=== PATIENT | female | born 1965 | race Caucasian/White ===

== ENCOUNTER 2023-12-20 12:33 | Emergency (ER) | payer MEDICARE, SELFPAY ==
[2023-12-20 12:36] VITALS: BP 107/68
[2023-12-20 13:08] VITALS: BP 118/67
[2023-12-20 13:13] VITALS: BMI 35.2
--- NOTE | 2023-12-20 13:14 | ED.GENMED ---
History of Present Illness
General
Chief Complaint: Fainting/Passed Out
Source: patient
Exam Limitations: none
Time Seen by Provider: 12/20/23 13:01
Travel History
Have you had any contact with someone who has COVID-19?: No
Do you have any symptoms of coronavirus? Fever > 100 degrees, chills, cough, shortness of breath, sore throat, loss of taste or smell, muscle aches, or headache?: No
History of Present Illness
History of Present Illness:
Patient started with crampy abdominal pain vomiting and diarrhea yesterday. Multiple episodes of diarrhea. No blood or mucus. Crampy abdominal pain. Had a syncopal episode last evening and this morning. Both with prodromal symptoms. No
significant trauma. No preceding chest pain shortness of breath palpitations heart racing. No recent antibiotics or travel history. 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 All
Past History
Past History
ED Past Medical History: Asthma, Cancer (uterine cancer), HTN, Hypercholesterolemia, IDDM, Seizures, Other (Neuropathy, dizziness, muscle weakness, bundle branch block, chronic urinary tract infections' anemia, urinary retention, lactic acidosis
from 'mitochondrial disease' (MELAS), Diabetic ulcers, Cellulitis, MS) and Other (Arthritis of the knee's, Cellulitis of the face, MRSA)
ED Past Surgical History: Appendectomy, Cholecystectomy, , Gynecological (Uterine CA with Hysterectomy) and Orthopedic (knee infection with arthroscopy)
Social History
Tobacco: Former smoker
Alcohol: None
Drug: None
Personal:
Living: alone
Employment: Employed
Family History
Family History: Other (Reviewed and non-contributory except for? MELAS in children)
Review of Systems
Review of Systems
All Other Systems: Not applicable
Constitutional: Denies fever
Respiratory: Denies cough
Cardiac: Denies chest pain or palpitations
Phy Exam
Physical Exam
Physical Exam:
GENERAL: Alert and oriented in no apparent distress. No scalp trauma. Neck nontender number at Tuesday to get the CT back
EYE: Orbits normal.
NECK: Supple, no significant adenopathy.
ENT: Pharynx without erythema
CARDIAC: Regular rate and rhythm without any obvious murmurs.
LUNGS: Clear breath sounds,normal
ABDOMEN: Soft, without focal tenderness or distention
NEUROLOGICAL: Alert and oriented , grossly non-focal
SKIN: Warm and dry, no rash or lesion, no discoloration, skin intact.
MUSCULOSKELETAL: No edema,no deformity.Good color
PSYCH: Normal and appropriate interaction.
Course
Orders/Labs/Results
Orders:
Orders
12/20/23 12:40
EKG [Electrocardiogram (*1)] Urgent
Reason for Study: Syncope
EKG- Treatment ONCE
12/20/23 13:16
0.9% Sodium Chloride 1000 ml [Nss] 1,000 ml IV BOLUS
12/20/23 13:20
CT Abd/pel W Iv And Oral Contr Urgent
Comment:
Reason For Exam: Abdominal pain/diarrhea/recurrent syncope
Cardiac Monitoring- Treatment ONCE
IV Insert/Care/Rem.- Treatment PRN
0.9% Sodium Chloride 1000 ml [Nss] 1,000 ml IV BOLUS
Iohexol [Omnipaque] See Protocol PO NOW STA
Pulse Ox/cont/shift [RESP] Stat
Quantity: 1
12/20/23 13:24
Complete Blood Count/With Diff Urgent
Comprehensive Metabolic Panel Urgent
Lipase Urgent
Troponin I Urgent
12/20/23 13:50
Potassium Chloride 10% Elixir [KCl Elixir] 40 meq PO NOW STA
12/20/23 14:33
Ondansetron Injectable [Zofran] 4 mg .ROUTE .STK-MED ONE
12/20/23 14:36
Ondansetron Injectable [Zofran] 4 mg IV NOW STA
12/20/23 16:31
STOOL [C difficile Antigen & Toxins] Urgent
TRINIDAD Source: Feces/Stool
Specimen Description:
Date Specimen was Collected: 12/20/23
Time Specimen was Collected: 16:30
Stool Culture Urgent
TRINIDAD Source: Feces/Stool
Specimen Description:
Date Specimen was Collected: 12/20/23
Time Specimen was Collected: 16:30
Abnormal Lab Results
12/20/23
13:24
MPV 10.8 H fL
(7.4-10.4)
Absolute Neuts (auto) 7.4 H 10^3/uL
(1.4-6.5)
Absolute Monos (auto) 0.7 H 10^3/uL
(0.1-0.6)
Lymphocytes % 17.5 L %
(20.5-51.1)
Potassium 3.2 L mmol/L
(3.5-5.1)
BUN 27 H mg/dl
(7-17)
Creatinine 1.1 H mg/dL
(0.6-1.0)
Glucose 155 H mg/dl
(70-99)
12/20/23 13:24
12/20/23 13:24
Vital Signs
Initial and Last Documented VS:
Initial Vital Signs
Temp Pulse Resp BP Pulse Ox
98.4 F 87 16 107/68 98
12/20/23 12:36 12/20/23 12:36 12/20/23 12:36 12/20/23 12:36 12/20/23 12:36
Last Documented Vital Signs
Temp Pulse Resp BP Pulse Ox
98.4 F 85 14 146/89 98
12/20/23 12:36 12/20/23 18:30 12/20/23 15:30 12/20/23 18:30 12/20/23 18:30
MDM/Problems Addressed
Differential Diagnosis Includes:
Patient's syncope is likely vasovagal/dehydration. Prodromal symptoms. Not describing anything that would make me suspicious for arrhythmias. Abdomen is nontender but with 2 episodes of syncope the gastric sleeve the pain last evening feel CT is
warranted.
*Radiology
Radiology exam reviewed: radiology read reviewed (CT consistent with colitis or enteritis)
*Pulse Oximetry
Patient hypoxic: no
*EKG
Interpreted by ED Provider?: Yes
Comparison EKG: changes noted
Rate: normal
Rhythm: sinus
[place]: left axis deviation
QRS Pattern: poor R-wave progression
Ischemia: other (No ischemia. Slight lengthening of QT but still within normal limits)
*Critical Care Note
Total Time (30-74mins, 75-104mins- exclusive of procedures): Not Applicable
Data Reviewed
Review of Other/Old Records Reveals: Labs and Testing
Update Note
Update Note:
Patient feeling better. Medically stable. Syncope be very likely vasovagal/dehydration. No arrhythmias here. Patient did not want to wait for her instructions. Is aware of her mild hypokalemia. Instructed to return with increased pain fever
recurrent passing out or any other concerning symptoms
ED Attending Note
-
Portions of this chart may have been created with voice recognition software.� Occasional wrong word or��sound alike� substitutions may have occurred due to the inherent limitations of voice recognition software.
Discharge Plan
Departure
Patient Disposition: Home (Routine Discharge)
Date of Disposition: 12/20/23
Time of Disposition: 19:53
Patient with high blood pressure during this ER visit?: Yes
Discharge Problem:
Enteritis/colitis, Syncope x 2
Prescriptions:
No Action
baclofen 10 MG tablet
10 mg PO TID
albuterol sulfate 1 PUFF HFA aerosol inhaler
1 puff inhalation R Q4HPRN PRN (Reason: SOB)
levocarnitine [Carnitor] 330 MG tablet
4 tab PO TID
gabapentin 100 MG capsule
100 mg PO TID
insulin lispro [Humalog U-100 Insulin] 100 UNIT/ML solution
0 unit SC .SLIDING SCALE AC
insulin glargine [Lantus Solostar U-100 Insulin] 300 UNITS/3 ML insulin pen
60 units SC HS
losartan 25 MG tablet
25 mg PO DAILY
Referrals:
Bibi Auguste DO [Family Provider] -
Interventions
Interventions:
*Risk Screen - Suicide Last Done: 12/20/23 12:36
*General Assessment Last Done: 12/20/23 12:36
*Neglect/Abuse Screening Last Done: 12/20/23 12:36
ED- Fall Risk Assessment Last Done: 12/20/23 13:45
*ED COVID-19 Vaccine History Last Done: 12/20/23 13:14
*Nursing Disposition Last Done: 12/20/23 19:56
ED- Cardiac Assessment Last Done: 12/20/23 13:14
ED- Neurological Assessment Last Done: 12/20/23 13:14
Discharge Date and Time
Discharge Date/Time: 12/20/23 19:57
[2023-12-20] MEDS: NSS 1000 IV (13:16)
[2023-12-20] MEDS: OMNIPAQUE 50 ML PO (13:28)
[2023-12-20 13:32] LABS: % Basophils 0.2 % (0-2); % Eosinophils 0.1 % (0-6); % Immature Granulocytes 0.4 % (0-0.5); % Lymphocytes 17.5 % (20.5-51.1); % Neutrophils 74.8 % (42.2-75.2); Absolute Lymphocytes 1.7 10^3/uL (1.2-3.4); Absolute Monocytes 0.7 10^3/uL (0.1-0.6); Absolute Neutrophils 7.4 10^3/uL (1.4-6.5); Hematocrit 39.4 % (37.0-47.0); Hemoglobin 13.4 g/dL (12.0-16.0); Mean Corpuscular Hgb 30.1 pg (27.0-31.0); Mean Corpuscular Volume 88.5 fL (81.0-99.0); Mean Platelet Volume 10.8 fL (7.4-10.4); Nucleated Red Blood Cells % 0 %; Platelet Count 256 10^3/uL (130-400); Red Blood Cell Count 4.45 10^6/uL (4.20-5.40); Red Cell Dist. Width 12.9 % (11.5-14.5); White Blood Cell Count 9.8 10^3/uL (4.8-10.8)
[2023-12-20 13:45] LABS: ALT (SGPT) 22 U/L (0-35); AST (SGOT) 27 U/L (14-36); Alkaline Phosphatase 67 U/L (38-126); Blood Urea Nitrogen 27 mg/dl (7-17); Calcium 8.9 mg/dl (8.4-10.2); Carbon Dioxide 23 mmol/L (22-30); Chloride 102 mmol/L (98-107); Estimated Creatinine Clearance 70 ml/min; Glucose 155 mg/dl (70-99); Potassium 3.2 mmol/L (3.5-5.1); Sodium 137 mmol/L (135-145); Total Bilirubin 0.8 mg/dl (0.2-1.3); Total Protein 6.7 g/dl (6.3-8.2); eGFR 57.88
[2023-12-20 13:52] LABS: Lipase 63 U/L (23-300)
[2023-12-20 13:56] LABS: Troponin I < 0.012 ng/ml
[2023-12-20 14:00] VITALS: BP 107/63
[2023-12-20] MEDS: KCL ELIXIR 40 MEQ PO (14:06)
[2023-12-20] MEDS: ZOFRAN 4 MG IV (14:37)
[2023-12-20 15:00] VITALS: BP 118/63
[2023-12-20 18:30] VITALS: BP 146/89
== END 2023-12-20 19:57 | disposition home or self-care (01) ==
LOC: EMR 12:33
PROVIDERS: EMERGENCY PHYSICIAN Emergency Medicine; FAMILY PHYSICIAN Family Medicine
DX: K52.9 Noninfective gastroenteritis and colitis, unspecified (principal); R55 Syncope and collapse; J45.909 Unspecified asthma, uncomplicated; I10 Essential (primary) hypertension; E78.00 Pure hypercholesterolemia, unspecified; E11.9 Type 2 diabetes mellitus without complications; Z85.42 Personal history of malignant neoplasm of other parts of uterus; Z87.891 Personal history of nicotine dependence; Z90.49 Acquired absence of other specified parts of digestive tract; Z90.710 Acquired absence of both cervix and uterus
CPT/HCPCS: 99284; 96374; 96361; 74177; 80053; 83690; 84484; 85025; 87045; 87046; 87077; 87324; 87427; 87449; 93005; Q9967

== ENCOUNTER → 2024-01-25 16:13 | Outpatient (REF) | payer MEDICARE, SELFPAY | LOC: HWWDC 16:13 | PROVIDERS: ATTENDING PHYSICIAN Family Medicine | DX: Z12.31 Encounter for screening mammogram for malignant neoplasm of breast (principal) | CPT/HCPCS: 77063; 77067 ==

== ENCOUNTER → 2024-03-12 16:40 | Outpatient (REF) | payer MEDICARE, SELFPAY | LOC: HWRAD 16:40 | PROVIDERS: ATTENDING PHYSICIAN Physician Assistant Medical | DX: J06.9 Acute upper respiratory infection, unspecified (principal) | CPT/HCPCS: 71046 ==

== ENCOUNTER → 2024-10-16 09:43 | Outpatient (REF) | payer MEDICARE, SELFPAY | LOC: HWRAD 09:43 | PROVIDERS: ATTENDING PHYSICIAN Psychiatry & Neurology Neurology; PRIMARYCARE PHYSICIAN Family Medicine; REFERRING PHYSICIAN Physician Assistant | DX: R79.89 Other specified abnormal findings of blood chemistry (principal); E71.318 Other disorders of fatty-acid oxidation; E04.1 Nontoxic single thyroid nodule | CPT/HCPCS: 76536; 76700 ==

== ENCOUNTER → 2024-10-30 10:06 | Outpatient (REF) | payer MEDICARE, SELFPAY | LOC: RAD 10:06 | PROVIDERS: ATTENDING PHYSICIAN Obstetrics & Gynecology; FAMILY PHYSICIAN Family Medicine | DX: N20.0 Calculus of kidney (principal); N39.0 Urinary tract infection, site not specified; N39.3 Stress incontinence (female) (male); R39.14 Feeling of incomplete bladder emptying | CPT/HCPCS: 74178; Q9967 ==

== ENCOUNTER → 2025-01-19 15:21 | Outpatient (REF) | payer MEDICARE, SELFPAY | LOC: RAD 15:21 | PROVIDERS: ATTENDING PHYSICIAN Emergency Medicine; FAMILY PHYSICIAN Family Medicine | DX: J45.50 Severe persistent asthma, uncomplicated (principal) | CPT/HCPCS: 71046 ==

== ENCOUNTER 2025-02-24 18:48 | Inpatient (IN) | payer MEDICARE, SELFPAY ==
[2025-02-24] VITALS (12 sets, daily range): BP systolic 105–138; BP diastolic 60–94; BMI 35.6; BMI 34.6
--- NOTE | 2025-02-24 14:23 | ED.GENMED ---
History of Present Illness
General
Chief Complaint: Rectal Bleeding
Source: patient
Exam Limitations: none
Time Seen by Provider: 02/24/25 14:09
Nursing documentation reviewed up to this point in time: agreed with
History of Present Illness
History of Present Illness:
59-year-old female with history of gastric sleeve 4 years ago, Cholecystectomy, appendectomy, hysterectomy, HTN, NIDDM on Mounjaro, mitochondrial disease, hypothyroidism, diabetic retinopathy presents with rectal bleeding. She states for the past
week she has noted red blood movements. She does have a history of hemorrhoids but they have not been bothering her. She is also had constant lower aching abdominal pains. Today her rectal bleeding included a large clot which prompted her to come
to the ER. She states she feels 'a little dizzy and a little nauseous.'
Past History
Past History
ED Past Medical History: Asthma, Cancer (uterine cancer), HTN, Hypercholesterolemia, NIDDM (On Mounjaro), Seizures, Other (Neuropathy, dizziness, muscle weakness, bundle branch block, chronic urinary tract infections' anemia, urinary retention,
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
ED Past Surgical History: Appendectomy, Cholecystectomy, , Gynecological (Uterine CA with Hysterectomy) and Orthopedic (knee infection with arthroscopy)
Social History
Tobacco: Former smoker
Alcohol: None
Drug: None
Personal:
Living: alone
Employment: Employed
Family History
Family History: Other (Reviewed and non-contributory except for? MELAS in children)
Review of Systems
Review of Systems
Allergies reviewed?: Yes
All Other Systems: ROS reviewed and negative except as documented in HPI and ROS
Constitutional: Denies fever
Cardiac: Denies chest pain
ABD/GI: Reports abdominal pain, nausea and bloody stools; Denies vomiting, diarrhea or anorexia
: Denies dysuria, frequency or difficulty voiding
Musculoskeletal: Reports no symptoms
Skin: Reports no symptoms
Neurological: Reports dizzy (Intermittent dizziness); Denies headache, weakness or numbness
Phy Exam
Physical Exam
Physical Exam:
GENERAL: No acute distress. A&Ox3.
CONSTITUTIONAL: Afebrile.
EYES: clear, conjunctivae normal
ENMT: moist mucus membranes
RESPIRATORY: Regular respirations, nonlabored, lungs clear.
CARDIOVASCULAR: Regular rate and rhythm, no murmurs, no rubs.
GI: Soft, tender to palpate middle left lower abdomen, normal BS
Rectal: perianal skin colored tags, hemorrhoids, no stool in rectal vault, no palpable masses, red blood on gloved finger
MUSCULOSKELETAL: Moves with ease. Well perfused.
SKIN: Warm, dry, pink
PSYCH: Normal mood and affect. Well kept, interactive and appropriate
NEUROLOGIC: Awake, alert and oriented. No focal neurological deficits
Course
Orders/Labs/Results
Orders:
Orders
02/24/25 14:22
CT Abd/pelvis W Iv Cont Urgent
Comment:
Reason For Exam: rectal bleeding, lower abd pain
02/24/25 14:44
Type+Screen Urgent
Complete Blood Count/With Diff Urgent
Comprehensive Metabolic Panel Urgent
02/24/25 16:46
ABO2 Urgent
BBK Wristband Number:
Associate notified that ABO2 has been ordered: [id number]
Date: 02/24/25
Time: 14:51
Oil Pipe Inspector ID: [id number]
02/24/25 18:37
Admit/Transfer Patient As Directed
Co-Sign Provider:
Level of Care: Inpatient admission
Assign to:: Telemetry
Physician / Group: [email or web address]
Diagnosis: Acute rectal bleed with clot passage
Reason for Telemetry: Other
Other Reason for Telemetry: Acute rectal bleed with clot passage
Date to Stop Telemetry: 02/26/25
Time to Stop Telemetry: 11:00
Reason for Hospitalization: Acute rectal bleed with clot passage
Expected length of stay greater than two midnights?: Yes
ELOS- Estimated Length of Stay in days: 2
I certify the patient meets the requirements for IP care: Yes
02/24/25 18:38
Code Status As Directed
Resuscitation Status: Full Code
02/26/25 11:00
DC Protocol for Telemetry ONCE
Abnormal Lab Results
02/24/25 02/24/25
14:44 16:48
RBC 3.86 L 10^6/uL
(4.20-5.40)
Hgb 11.5 L g/dL
(12.0-16.0)
Hct 33.8 L %
(37.0-47.0)
POC Glucose 65 L mg/dl
(70-99)
02/24/25 14:44
02/24/25 14:44
Vital Signs
Initial and Last Documented VS:
Initial Vital Signs
Temp Pulse Resp BP Pulse Ox
98.4 F 85 22 138/74 99
02/24/25 13:17 02/24/25 13:17 02/24/25 13:17 02/24/25 13:17 02/24/25 13:17
Last Documented Vital Signs
Temp Pulse Resp BP Pulse Ox
98.4 F 85 22 123/78 98
02/24/25 13:17 02/24/25 13:17 02/24/25 13:17 02/24/25 17:42 02/24/25 17:45
MDM/Problems Addressed
Differential Diagnosis Includes:
internal hemorrhoid, ruptured diverticulum, diverticulitis
MDM/Problems Addressed:
59-year-old female with history of gastric sleeve 4 years ago, Cholecystectomy, appendectomy, hysterectomy, HTN, NIDDM on Mounjaro, mitochondrial disease, hypothyroidism, diabetic retinopathy presents with rectal bleeding. She states for the past
week she has noted red blood movements. She does have a history of hemorrhoids but they have not been bothering her. She is also had constant lower aching abdominal pains. Today her rectal bleeding included a large clot which prompted her to come
to the ER. She states she feels 'a little dizzy and a little nauseous.'
CBC: Hemoglobin 11.5
CMP normal
6:00 PM:
CT abdomen pelvis with IV only contrast: Radiology report read: IMPRESSION:
1. Mild hepatomegaly.
2. Moderate fecal material in the sigmoid colon.
3. Previous BART-BSO, appendectomy, cholecystectomy, and sleeve gastrectomy.
4. Severe discogenic degenerative disease at L2/L3 and moderate to severe discogenic degenerative disease at the other lumbar levels.
Orthostatics done by this examiner:
Supine BP 126/69 heart rate 73
Sitting BP 123/78, heart rate 79 and states she feels lightheaded
Standing BP 124/108, heart rate 94
Offered admission vs home with repeat Hgb via PCP, she would prefer admission since bleeding x 1 week
*Critical Care Note
Total Time (30-74mins, 75-104mins- exclusive of procedures): Not Applicable
ED Attending Note
-
Portions of this chart may have been created with voice recognition software.� Occasional wrong word or��sound alike� substitutions may have occurred due to the inherent limitations of voice recognition software.
Discharge Plan
Departure
Patient Disposition: Admit
Date of Disposition: 02/24/25
Time of Disposition: 17:50
Admit to: Med/Surg
Presentation/result/management discussed w/ accepting MD/DO: Hospitalist
Condition: Good
Discharge Problem:
Bright red rectal bleeding
Interventions
Interventions:
*Risk Screen - Suicide Last Done: 02/24/25 13:17
*General Assessment Last Done: 02/24/25 13:17
*Neglect/Abuse Screening Last Done: 02/24/25 13:17
*ED- Fall Risk Assessment Last Done: 02/24/25 14:32
*ED COVID-19 Vaccine History Last Done: 02/24/25 14:32
PO-Huxanc-Lnsqcbtltl Assessment Last Done: 02/24/25 14:32
ED- Cardiac Assessment Last Done: 02/24/25 14:32
ED- Pulmonary Assessment Last Done: 02/24/25 14:32
[2025-02-24 14:51] LABS: % Basophils 0.3 % (0-2); % Eosinophils 1.8 % (0-6); % Immature Granulocytes 0.5 % (0-0.5); % Lymphocytes 36.2 % (20.5-51.1); % Monocytes 7.7 % (1.7-9.3); % Neutrophils 53.5 % (42.2-75.2); Absolute Eosinophils 0.1 10^3/uL (0-0.7); Absolute Lymphocytes 2.4 10^3/uL (1.2-3.4); Absolute Monocytes 0.5 10^3/uL (0.1-0.6); Absolute Neutrophils 3.5 10^3/uL (1.4-6.5); Hematocrit 33.8 % (37.0-47.0); Hemoglobin 11.5 g/dL (12.0-16.0); Mean Corpuscular Hgb 29.8 pg (27.0-31.0); Mean Corpuscular Volume 87.6 fL (81.0-99.0); Mean Platelet Volume 9.9 fL (7.4-10.4); Nucleated Red Blood Cells % 0 %; Platelet Count 212 10^3/uL (130-400); Red Blood Cell Count 3.86 10^6/uL (4.20-5.40); Red Cell Dist. Width 13.2 % (11.5-14.5); White Blood Cell Count 6.5 10^3/uL (4.8-10.8)
[2025-02-24 15:13] LABS: ALT (SGPT) 23 U/L (0-35); AST (SGOT) 25 U/L (14-36); Albumin 3.8 g/dl (3.5-5.0); Alkaline Phosphatase 61 U/L (38-126); Blood Urea Nitrogen 15 mg/dl (7-17); Calcium 9.5 mg/dl (8.4-10.2); Carbon Dioxide 28 mmol/L (22-30); Chloride 106 mmol/L (98-107); Estimated Creatinine Clearance 95 ml/min; Glucose 73 mg/dl (70-99); Potassium 4.3 mmol/L (3.5-5.1); Sodium 142 mmol/L (135-145); Total Bilirubin 0.4 mg/dl (0.2-1.3); Total Protein 6.4 g/dl (6.3-8.2); eGFR > 60.00
[2025-02-24 16:49] LABS: Glucose - Point of Care 65 mg/dl (70-99)
--- NOTE | 2025-02-24 16:57 | EDRN ---
Patient blood sugar rechecked and was 65. Patient states she just feels tired. Lucila ESQUIVEL made aware and does not want patient to eat or drink until after the CT results. No further orders at this time.
[2025-02-24 17:24] LABS: Glucose - Point of Care 90 mg/dl (70-99)
--- NOTE | 2025-02-24 17:32 | EDRN ---
Lucila bolanday with patient drinking for her low blood sugar. Blood sugar within normal limits (90) after drinking OJ with a packet of sugar. Patient states she feels better.
--- NOTE | 2025-02-24 18:20 | HPS.HSE ---
Family Physician
-
Family Physician: Yuly Albarado
Chief Complaint
-
rectal bleed
History of Present Illness
HPI
59F Former smoker, Obesity, HX gastric sleeve 4 years ago, HTN, NIDDM on Mounjaro, mitochondrial disease, hypothyroidism, diabetic retinopathy seen at ER
- rectal bleeding
- for the past week she has noted red blood movements.
- HX hemorrhoids but they have not been bothering he
- constant lower aching abdominal pains.
- Today her rectal bleeding included a large clot which prompted her to come to the ER.
- She states she feels 'a little dizzy and a little nauseous.'
Medical History
Past Medical History
Past Medical History: Reports HTN, Hypercholesterolemia and NIDDM (neuropathy )
Additional Past Medical History:
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
Past Surgical History: Reports Appendectomy, Cholecystectomy and Gynocological (hysterectomy )
Social History
Tobacco: Former Smoker
Drug: None
Family History
Family History: Not pertinent
Allergies / Home Medications
Allergies reflects when Allergies were last updated in [employer].
Home Medications with original date entered in [employer]
Allergy/Medication List:
Allergies
Allergy/AdvReac Type Severity Reaction Status Date / Time
cefazolin sodium [From Anc] Allergy seizure; Verified 02/24/25 13:17
tolerated
zosyn
Home Medications
baclofen 10 mg tablet 10 mg PO TID 01/29/11
albuterol sulfate 90 mcg/actuation aerosol inhaler 2 puff inhalation R Q4HPRN PRN SOB 06/12/15
gabapentin 100 mg capsule 100 mg PO TID 11/10/16
L-Arginine 6,000 mg PO DAILY 02/24/25
bupropion HCl 100 mg tablet,12 hr sustained-release (Wellbutrin SR) 100 mg PO DAILY 02/24/25
citalopram 20 mg tablet (Celexa) 20 mg PO DAILY 02/24/25
coQ10 (ubiquinol) 100 mg capsule 400 mg PO BID@1200,1800 02/24/25
coQ10 (ubiquinol) 200 mg capsule 500 mg PO DAILY 02/24/25
meloxicam 7.5 mg tablet 7.5 mg PO DAILYPRN PRN MILD PAIN 02/24/25
methenamine hippurate 1 gram tablet 1 g PO BID 02/24/25
omeprazole 20 mg tablet,delayed release 20 mg PO DAILY 02/24/25
tirzepatide 7.5 mg/0.5 mL subcutaneous pen injector (Mounjaro) 7.5 mg SC SA 02/24/25
Review of Systems
-
Constitutional: Reports No Symptoms
EENT: Reports No Symptoms
Respiratory: Reports No Symptoms
Cardiac: Reports No Symptoms
: Reports No Symptoms
Musculoskeletal: Reports No Symptoms
Skin: Reports No Symptoms
Neurological: Reports No Symptoms
Endocrine: Reports No Symptoms
Hematologic/Lymphatic: Reports No Symptoms
Psych: Reports No Symptoms
Physical Exam
Vital Signs
Vital Signs
Temp Pulse Resp BP Pulse Ox
98.4 F 85 22 123/78 98
02/24/25 13:17 02/24/25 13:17 02/24/25 13:17 02/24/25 17:42 02/24/25 17:45
Physical Exam
General: Well Developed, Well Nourished and No Apparent Distress
HEENT: NormoCephalic, Moist mucous membranes and Atraumatic
Respiratory: Clear
Cardiac: S1/S2 and Regular Rhythm; No Murmur or Rub
Musculoskeletal: No Clubbing, No Cyanosis and No Edema
Skin: No Rash
Neuro: Nonfocal/grossly intact
Laboratory Results
-
02/24/25 14:44
02/24/25 14:44
Laboratory Results
Total Bilirubin 0.4 mg/dl (0.2-1.3) 02/24/25 14:44
AST 25 U/L (14-36) 02/24/25 14:44
ALT 23 U/L (0-35) 02/24/25 14:44
Alkaline Phosphatase 61 U/L (38-126) 02/24/25 14:44
Data Reviewed
-
CT Scan: Report Reviewed by me
Lab Data: Labs Reviewed by me
Old Records: Reviewed
Impression/Plan
-
VS
02/24/25
13:17 02/24/25
14:29 02/24/25
16:00
Temp 98.4 F
Pulse 85
Resp Rate 22
Blood pressure 138/74 116/66
SaO2 99
Oxygen Mode of Delivery Room air
Actual Weight 106.2 kg
Body Mass Index (BMI) 35.6
Labs
12/20/23 02/24/25
13:24 14:44
Hgb 13.4 11.5 L
Plt Count 212
CT Abd/pelvis W Iv Cont
1. Mild hepatomegaly.
2. Moderate fecal material in the sigmoid colon.
3. Previous BART-BSO, appendectomy, cholecystectomy, and sleeve gastrectomy.
4. Severe discogenic degenerative disease at L2/L3
moderate to severe discogenic degenerative disease at the other lumbar levels.
Last hospitalist admission: 2019
ASSESSMENT & PLAN
Acute rectal bleed with clot passage red blood on gloved finger per ER CHILD MONITOR DDX: hemorrhoids bleed
Associates lower abdominal discomfort
POS THERESE for hemorrhoids but no stool in rectal vault, no palpable masses
Constipation with moderate fecal material in the sigmoid colon.
- blood consented
- T & S
- IV PPI daily
- Clear diet and IVF
- Trend H & H
- GI consult
Known Conditions : not active
Essential HTN in PMH: no longer on on BP Meds s/p ghastric sleeve surgery and loss 82 olbs
Hypercholesterolemia on siet control
NIDDM On Mounjaro and diet control
HX frequent UTI on Hiprex
Neuropathy HX
HX Seizures,
Asthma
Anemia
HX urinary retention
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
Cellulitis
Arthritis of the knee's
Cellulitis of the face
HX MRSA)
DVT Px: SQH
Full code
IP TLM
[2025-02-24] MEDS: NSS 1000 IV (21:53)
[2025-02-24] MEDS: LIORESAL 10 MG PO (22:00)
[2025-02-24] MEDS: NEURONTIN 100 MG PO (22:00)
[2025-02-24] MEDS: HIPREX 1 GRAM PO (22:00)
[2025-02-24 22:10] LABS: Glucose - Point of Care 86 mg/dl (70-99)
--- NOTE | 2025-02-24 22:30 | PTCARENOTE ---
Pt transported from ED to 3W via stretcher. Pt independent from stretcher to bed. Vitals obtained and stable, AOOX3, pt on TELE #6, oriented to room and call merritt in reach.
[2025-02-24 23:35] LABS: Hematocrit 33.8 % (37.0-47.0); Hemoglobin 11.5 g/dL (12.0-16.0)
[2025-02-25] VITALS (8 sets, daily range): BP systolic 95–151; BP diastolic 50–88; PULSE 63–112; BMI 34.5
--- NOTE | 2025-02-25 07:21 | CON.GI ---
Addendum entered and electronically signed by Arnulfo Amador MD 02/25/25 17:51:
The patient was seen and examined by me independently in collaboration with the nurse practitioner.
Past medical history/social history/medications/allergies/family history reviewed.
Lab data and imaging data reviewed.
59-year-old female presenting with rectal bleeding per patient with clots. Hb 11.5. BUN 10.
C/o abd pain - CT showed mild hepatomegaly, moderate fecal materal, sleeve gastrectomy, BART-BSO, CCY, discogenic dz.
Last colonoscopy 4 years ago [facility].
Diff dx: hemorrhoids, tics, mass, polyp, AVM. Less likely small bowel bleed.
Plan for cscope tomorrow.
R/a/b reviewed with pt risks including but not limited to bleeding, perforation, infection.
Also some vague upper GI complaints (nausea, belching) can follow up with GI outpatient for this.
Original Note:
Consultation
-
Date/Time Consultation Requested: 02/24/25 2250
Date/Time Consultation Performed: 02/25/25 1115
Requesting Provider: ALVIN Ram
Performing Provider: ALVIN Morales, Corin Amador MD
Reason for Consultation: rectal bleeding
Medical History
Chief Complaint / HPI
Chief Complaint: rectal bleeding
History of Present Illness:
Pt is a 59yo presents with hx obesity, gastric sleeve 4 years ago ,colon polyp, HTN, NIDDM on Mounjaro over last year, mitochondrial disease, hypothyroidism, diabetic retinopathy, seizures, anemia, cellulitis, MS, arthritis, cellulitis, MRSA, with
onset of rectal bleeding. On admission noted with hbg 11.5 with drop from 13.[address] on admission with HM, moderate stool in colon, DDD and noted prior surgical intervention In review with patient she admits to bleeding last July
with recommended colonoscopy but had other medical issues and did not completed. She then began about 1 weeks ago with red blood with BM's. She had several stools then with blood then prior to admission noted red blood on pants and noted clot of
red blood and presents for evaluation. She also admits to dizziness, nausea and belching. She also admits to left sided abdominal pain. She denies issues with constipation with daily stools and denies issue with straining. No black stools. Rare
Mobic use and no other NSAID or anticoagulation use prior to admission. Only new med was Hiprex that she started prior to admission.
Past Medical History
Past Medical History: HTN, Hypothyroidism, NIDDM (on Mounjaro), Seizures and Other (obesity, mitochondiarl disease, retinopathy, anemia , colon polyp)
Past Surgical History: Appendectomy, Cholecystectomy, Gynecological (hysterectomy) and Other (gastric sleeve)
Social History
Tobacco: Non-Smoker
Alcohol: Occasional (rare )
Drug: None
Living: With Family
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
Family History
Family History: Other (no family hx colon CA)
Allergies / Home Medications
Allergy/AdvReac Type Severity Reaction Status Date / Time
cefazolin sodium [From Anc] Allergy seizure; Verified 02/24/25 13:17
tolerated
zosyn
�Medication �Instructions �Recorded
baclofen 10 mg tablet 10 mg PO TID 01/29/11
albuterol sulfate 90 mcg/actuation 2 puff inhalation R Q4HPRN PRN SOB 06/12/15
aerosol inhaler
gabapentin 100 mg capsule 100 mg PO TID 11/10/16
L-Arginine 6,000 mg PO DAILY 02/24/25
bupropion HCl 100 mg tablet,12 hr 100 mg PO DAILY 02/24/25
sustained-release (Wellbutrin SR)
citalopram 20 mg tablet (Celexa) 20 mg PO DAILY 02/24/25
coQ10 (ubiquinol) 100 mg capsule 400 mg PO BID@1200,1800 02/24/25
coQ10 (ubiquinol) 200 mg capsule 500 mg PO DAILY 02/24/25
meloxicam 7.5 mg tablet 7.5 mg PO DAILYPRN PRN MILD PAIN 02/24/25
methenamine hippurate 1 gram tablet 1 g PO BID 02/24/25
omeprazole 20 mg tablet,delayed 20 mg PO DAILY 02/24/25
release
tirzepatide 7.5 mg/0.5 mL 7.5 mg SC SA 02/24/25
subcutaneous pen injector
(Mounjaro)
Review of Systems
-
History Source: Patient and Family
Constitutional: Reports Weight Loss ( 10 lbs 1 year ago with start of Mounjaro)
EENT: Reports No Symptoms
Respiratory: Reports No Symptoms
Cardiac: Reports No Symptoms
Abdomen/GI: Reports Abdominal Pain, Nausea and Bloody Stools
: Reports Other (hx frequent UTI's)
Musculoskeletal: Reports No Symptoms
Skin: Reports No Symptoms
Neurological: Reports Dizzy
Hematologic/Lymphatic: Reports Bleeding
Vital Signs
Temp Pulse Resp BP Pulse Ox
97.9 F 68 16 109/59 97
02/25/25 03:00 02/25/25 03:00 02/25/25 03:00 02/25/25 03:00 02/25/25 03:00
Physical Exam
Exam
General: Well Developed, Well Nourished and No Apparent Distress
HEENT: Normocephalic and Anicteric
Respiratory: Clear
Cardiac: Regular Rhythm
GI: Soft, Non Distended and Tender (minimal LLQ tenderness on exam)
Rectal: Hemorrhoids and Other (brown stool with trace heme + no red blood seen no masses or leisons )
Musculoskeletal: No Clubbing and No Cyanosis
Skin: Warm and Dry
Neuro: Awake, Alert and AO x 3
Psych: Calm
Results
WBC 6.5 10^3/uL (4.8-10.8) 02/24/25 14:44
Hgb 11.5 g/dL (12.0-16.0) L 02/24/25 23:23
Hct 33.8 % (37.0-47.0) L 02/24/25 23:23
MCV 87.6 fL (81.0-99.0) 02/24/25 14:44
Plt Count 212 10^3/uL (130-400) 02/24/25 14:44
Absolute Neuts (auto) 3.5 10^3/uL (1.4-6.5) 02/24/25 14:44
Sodium 142 mmol/L (135-145) 02/24/25 14:44
Potassium 4.3 mmol/L (3.5-5.1) 02/24/25 14:44
Chloride 106 mmol/L (98-107) 02/24/25 14:44
Carbon Dioxide 28 mmol/L (22-30) 02/24/25 14:44
BUN 15 mg/dl (7-17) 02/24/25 14:44
Creatinine 0.8 mg/dL (0.6-1.0) 02/24/25 14:44
Calcium 9.5 mg/dl (8.4-10.2) 02/24/25 14:44
Total Bilirubin 0.4 mg/dl (0.2-1.3) 02/24/25 14:44
AST 25 U/L (14-36) 02/24/25 14:44
ALT 23 U/L (0-35) 02/24/25 14:44
Alkaline Phosphatase 61 U/L (38-126) 02/24/25 14:44
Diagnostic Image Results:
02/24/25 CT Abd/pelvis W Iv Cont
1. Mild hepatomegaly.
2. Moderate fecal material in the sigmoid colon.
3. Previous BART-BSO, appendectomy, cholecystectomy, and sleeve gastrectomy.
4. Severe discogenic degenerative disease at L2/L3 and moderate to severe discogenic degenerative disease at the other lumbar levels
Prior GI Procedures:
EGD: 4 years ago recall as stable
Colonoscopy: age 49 with polyp, 4 years ago recalls as normal [facility] vs [facility]
Assessment / Plan
-
Pt is a 59yo presents with hx obesity, gastric sleeve 4 years ago, colon polyp, HTN, NIDDM on Mounjaro over last year, mitochondrial disease, hypothyroidism, diabetic retinopathy, seizures, anemia, cellulitis, arthritis, cellulitis, MRSA, with
onset of rectal bleeding. On admission noted with hbg 11.5 with drop from 13.[address] on admission with HM, moderate stool in colon, DDD and noted prior surgical intervention In review with patient she admits to bleeding last July
with recommended colonoscopy but had other medical issues and did not completed. She then began about 1 weeks ago with red blood with BM's. She had several stools then with blood then prior to admission noted red blood on pants and noted clot of
red blood and presents for evaluation. She also admits to dizziness, nausea and belching. She also admits to left sided abdominal pain. She denies issues with constipation with daily stools and denies issue with straining. No black stools. Rare
Mobic use and no other NSAID or anticoagulation use prior to admission. Only new med was Hiprex that she started prior to admission. Last colonoscopy 4 years ago recalls as normal.
-rectal bleeding
-nausea/dizziness
-hemorrhoids
-hx colon polyp x 1 at age 49
-anemia
-HM per CT
-hx gastric sleeve
other med problems:
-obesity
-frequent UTI's
-HTN
-NIDDM on Mounjaro prior to admission
-mitochondrial disease
-hypothyroidism
-diabetic retinopathy
-seizures
-hx cellulitis
-arthritis
PLAN:
Etiology of rectal bleeding related local source with hemorrhoids vs other
Pt also with some nausea and belching with rare NSAID use
current rectal brown stool no blood, trace +, no mass
will review for EGD/colon with Dr. Protano and timing IP vs Outpatient
cont clear diet til decide on timing
trend hbg
family updated
reviewed with nursing staff
-
-
-
Thank you for consultation and allowing me to participate in the patient's care. Please call the instrument and control service person GI physician during the after hours with any questions or concerns.
[2025-02-25] MEDS: NEURONTIN 100 MG PO ×3 (08:01→21:52)
[2025-02-25] MEDS: HIPREX 1 GRAM PO ×2 (08:02→20:45)
[2025-02-25] MEDS: CELEXA 20 MG PO (08:02)
[2025-02-25] MEDS: WELLBUTRIN SR (12 hour sustained release) 100 MG PO (08:02)
[2025-02-25] MEDS: NSS (PRESERVATIVE FREE) 10 ML IV (08:03)
[2025-02-25] MEDS: PROTONIX IV 40 MG IV (08:03)
[2025-02-25] MEDS: LIORESAL 10 MG PO ×3 (08:03→21:52)
[2025-02-25 08:06] LABS: Glucose - Point of Care 88 mg/dl (70-99)
[2025-02-25 08:18] LABS: ALT (SGPT) 23 U/L (0-35); AST (SGOT) 26 U/L (14-36); Albumin 3.5 g/dl (3.5-5.0); Alkaline Phosphatase 58 U/L (38-126); Blood Urea Nitrogen 10 mg/dl (7-17); Calcium 9.1 mg/dl (8.4-10.2); Carbon Dioxide 27 mmol/L (22-30); Chloride 106 mmol/L (98-107); Estimated Creatinine Clearance 107 ml/min; Glucose 84 mg/dl (70-99); Potassium 4.3 mmol/L (3.5-5.1); Sodium 140 mmol/L (135-145); Total Bilirubin 0.6 mg/dl (0.2-1.3); Total Protein 5.8 g/dl (6.3-8.2); eGFR > 60.00
[2025-02-25 11:24] LABS: Glucose - Point of Care 109 mg/dl (70-99)
--- NOTE | 2025-02-25 11:30 | W.PN.HOSP.TC ---
Today's Communication/Plan
-
check Fe studies
may benefit from periodic Fe infusions
await GI input as to whether further eval (?flex sig) is warranted
recheck Hgb in AM
Pt with recurrent UTI, will check UA
Assessment / Plan
Assessment / Plan
CT Abd/pelvis W Iv Cont
1. Mild hepatomegaly.
2. Moderate fecal material in the sigmoid colon.
3. Previous BART-BSO, appendectomy, cholecystectomy, and sleeve gastrectomy.
4. Severe discogenic degenerative disease at L2/L3
moderate to severe discogenic degenerative disease at the other lumbar levels.
Last hospitalist admission: 2019
ASSESSMENT & PLAN
Acute rectal bleed with clot passage red blood on gloved finger per ER APPEALS COORDINATOR DDX: hemorrhoids bleed
Associates lower abdominal discomfort
POS THERESE for hemorrhoids but no stool in rectal vault, no palpable masses
Constipation with moderate fecal material in the sigmoid colon.
- blood consented
Hgb in 12/24 was 13.4, on admission was 11.5
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
- T & S
- IV PPI daily
- Clear diet and IVF
- Trend H & H
Pt is s/p gastric bypass, will need to check Fe studies for potential Fe supplement
- GI consult
Known Conditions : not active
Essential HTN in PMH: no longer on on BP Meds s/p gastric sleeve surgery and loss 82 lbs
Hypercholesterolemia on diet control
NIDDM On Mounjaro and diet control
HX frequent UTI on Hiprex
will check UA
Neuropathy HX
HX Seizures,
Asthma
Anemia
HX urinary retention
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
Cellulitis
Arthritis of the knee's
Cellulitis of the face
HX MRSA)
DVT Px: SQH
Full code
IP TLM
Anticipated Discharge: 24 - 48 hours
Subjective/Interval History
-
Date of Service: February 25, 2025
Has been feeling dizzy and nauseous > 1 week
Objective Data
-
Labs:
Laboratory Results
02/24/25 02/25/25
23:23 06:32
Hgb 11.5 L
Hct 33.8 L
Sodium 140
Potassium 4.3
Chloride 106
Carbon Dioxide 27
BUN 10
Creatinine 0.7
Glucose 84
Calcium 9.1
Total Bilirubin 0.6
AST 26
ALT 23
Alkaline Phosphatase 58
Vital Signs:
Vital Signs
Temp Pulse Resp BP Pulse Ox
98.1 F 66 18 126/75 99
02/25/25 11:05 02/25/25 11:05 02/25/25 11:05 02/25/25 11:05 02/25/25 11:05
I&O
02/24/25 02/25/25 02/26/25
06:59 06:59 06:59
Intake Total 720 / 720
Balance 720 / 720
Review of Systems
-
History Source: Patient and Family (dgt in room)
Constitutional: Denies Fever
EENT: Reports No Symptoms Reported
Respiratory: Reports No Symptoms; Denies Cough
Cardiac: Reports No Symptoms; Denies Chest Pain
Abdomen/GI: Reports Abdominal Pain (lower abdominal pain) and Bloody Stools (prior to admission); Denies Nausea or Vomiting
Genitourinary: Reports No Symptoms
Physical Exam
-
General: Well Developed, Well Nourished and No Apparent Distress
HEENT: Normocephalic, Atraumatic and Moist Mucous Membranes
Respiratory: Clear to Auscultation; Negative Wheezes, Rales or Rhonchi
Cardiac: Regular Rhythm and S1/S2
GI: Nontender and Nondistended
Musculoskeletal: No Clubbing, No Cyanosis and No Edema
Neuro: Awake, Alert and Oriented
--- NOTE | 2025-02-25 11:59 | CM ---
Patient seen at bedside.
IA Completed.
Lives with daughter in a townhouse, 2 steps to enter, flight to bed/bath
PLOF: independent, no assistive device
DME: Cane, walker, stair glide, wheelchair, shower chair
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
Has had [employer] in past, [facility] in past
PCP: Yuly Albarado
Pharmacy: [facility]
PLAN: Home, no needs anticipated
[2025-02-25 12:34] LABS: Iron 101 ug/dl (37-170)
[2025-02-25 12:45] LABS: Percent Saturation 34 % (20-50); Total Iron Binding Capacity 296 ug/dl (265-497)
[2025-02-25 13:36] LABS: Ferritin 76.1 ng/ml (11.1-264.0)
[2025-02-25 14:07] LABS: Folate > 20.0 ng/ml (2.76-20); Vitamin B12 887 pg/ml (239-931)
[2025-02-25] MEDS: NSS 1000 IV (14:11)
[2025-02-25 17:06] LABS: Glucose - Point of Care 61 mg/dl (70-99)
[2025-02-25 17:27] LABS: Glucose - Point of Care 59 mg/dl (70-99)
[2025-02-25] MEDS: DEXTROSE 50% SYRINGE 12.5 GRAMS IV (17:28)
[2025-02-25 17:52] LABS: Glucose - Point of Care 164 mg/dl (70-99)
[2025-02-25] MEDS: NULYTELY SOLUTION 4 LITERS PO (18:41)
[2025-02-25 21:44] LABS: Glucose - Point of Care 58 mg/dl (70-99)
[2025-02-25 22:07] LABS: Glucose - Point of Care 85 mg/dl (70-99)
[2025-02-25 22:58] LABS: Glucose - Point of Care 60 mg/dl (70-99)
[2025-02-25 23:24] LABS: Glucose - Point of Care 55 mg/dl (70-99)
[2025-02-25 23:41] LABS: Glucose - Point of Care 76 mg/dl (70-99)
[2025-02-26] VITALS (8 sets, daily range): BP systolic 14–134; BP diastolic 61–95; BMI 34.7
[2025-02-26 03:15] LABS: Glucose - Point of Care 78 mg/dl (70-99)
[2025-02-26 06:01] LABS: Glucose - Point of Care 88 mg/dl (70-99)
[2025-02-26] MEDS: NSS 1000 IV (06:09)
[2025-02-26 06:58] LABS: % Basophils 0.5 % (0-2); % Eosinophils 1.8 % (0-6); % Immature Granulocytes 0.5 % (0-0.5); % Lymphocytes 32.2 % (20.5-51.1); Absolute Eosinophils 0.1 10^3/uL (0-0.7); Absolute Lymphocytes 2.1 10^3/uL (1.2-3.4); Absolute Monocytes 0.7 10^3/uL (0.1-0.6); Absolute Neutrophils 3.7 10^3/uL (1.4-6.5); Hematocrit 32.9 % (37.0-47.0); Hemoglobin 10.9 g/dL (12.0-16.0); Mean Corp Hgb Conc. 33.1 g/dL (33.0-37.0); Mean Corpuscular Hgb 29.3 pg (27.0-31.0); Mean Corpuscular Volume 88.4 fL (81.0-99.0); Mean Platelet Volume 10.4 fL (7.4-10.4); Nucleated Red Blood Cells % 0 %; Platelet Count 195 10^3/uL (130-400); Red Blood Cell Count 3.72 10^6/uL (4.20-5.40); Red Cell Dist. Width 13.3 % (11.5-14.5); White Blood Cell Count 6.6 10^3/uL (4.8-10.8)
[2025-02-26 07:06] LABS: INR 0.99; PT 13.4 Sec (11.4-14.6)
[2025-02-26] MEDS: HIPREX 1 GRAM PO ×2 (07:51→20:00)
[2025-02-26] MEDS: CELEXA 20 MG PO (07:52)
[2025-02-26] MEDS: LIORESAL 10 MG PO ×3 (07:52→21:12)
[2025-02-26] MEDS: NSS (PRESERVATIVE FREE) 10 ML IV (07:52)
[2025-02-26] MEDS: NEURONTIN 100 MG PO ×3 (07:52→21:12)
[2025-02-26] MEDS: WELLBUTRIN SR (12 hour sustained release) 100 MG PO (07:52)
[2025-02-26] MEDS: PROTONIX IV 40 MG IV (07:53)
[2025-02-26 12:11] LABS: Glucose - Point of Care 64 mg/dl (70-99)
[2025-02-26] MEDS: DEXTROSE 50% SYRINGE 12.5 GRAMS IV (12:13)
[2025-02-26 12:35] LABS: Glucose - Point of Care 109 mg/dl (70-99)
--- NOTE | 2025-02-26 12:50 | W.PN.HOSP.TC ---
Today's Communication/Plan
-
for colonoscopy today
Assessment / Plan
Assessment / Plan
CT Abd/pelvis W Iv Cont
1. Mild hepatomegaly.
2. Moderate fecal material in the sigmoid colon.
3. Previous BART-BSO, appendectomy, cholecystectomy, and sleeve gastrectomy.
4. Severe discogenic degenerative disease at L2/L3
moderate to severe discogenic degenerative disease at the other lumbar levels.
Last hospitalist admission: 2019
ASSESSMENT & PLAN
Acute rectal bleed with clot passage red blood on gloved finger per ER SURVEY PROJECT MANAGER DDX: hemorrhoids bleed
Associates lower abdominal discomfort
POS THERESE for hemorrhoids but no stool in rectal vault, no palpable masses
Constipation with moderate fecal material in the sigmoid colon.
- blood consented
Hgb in 12/24 was 13.4, on admission was 11.5-->10.9
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
- T & S
- IV PPI daily
- Clear diet and IVF
- Trend H & H
Pt is s/p gastric bypass,
Fe 34%/Ferritin 76.1
- GI consult for colonoscopy/EGD
Known Conditions : not active
Essential HTN in PMH: no longer on on BP Meds s/p gastric sleeve surgery and loss 82 lbs
Hypercholesterolemia on diet control
NIDDM On Mounjaro and diet control
HX frequent UTI on Hiprex
will check UA
Neuropathy HX
HX Seizures,
Asthma
Anemia
HX urinary retention
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
Pt states this increases risk of seizures following anesthesia
Cellulitis
Arthritis of the knee's
Cellulitis of the face
HX MRSA)
DVT Px: SQH
Full code
IP TLM
Anticipated Discharge: 24 - 48 hours
Subjective/Interval History
-
Date of Service: February 26, 2025
To go for colonoscopy in near future
Objective Data
-
Labs:
Laboratory Results
02/26/25
06:43
WBC 6.6
Hgb 10.9 L
Hct 32.9 L
Plt Count 195
PT 13.4
INR 0.99
Vital Signs:
Vital Signs
Temp Pulse Resp BP Pulse Ox
98.2 F 72 18 109/69 99
02/26/25 11:05 02/26/25 11:05 02/26/25 11:05 02/26/25 11:05 02/26/25 11:05
I&O
02/25/25 02/26/25 02/27/25
06:59 06:59 06:59
Intake Total 720 / 720 2039
Balance 720 / 720 2039
Review of Systems
-
History Source: Patient and Coordinated Provider
Constitutional: Denies Fever
EENT: Reports No Symptoms Reported
Respiratory: Reports No Symptoms; Denies Cough
Cardiac: Reports No Symptoms; Denies Chest Pain
Abdomen/GI: Reports Abdominal Pain (lower abdominal pain) and Bloody Stools (prior to admission); Denies Nausea or Vomiting
Genitourinary: Reports No Symptoms
Physical Exam
-
General: Well Developed, Well Nourished and No Apparent Distress
HEENT: Normocephalic, Atraumatic and Moist Mucous Membranes
Respiratory: Clear to Auscultation; Negative Wheezes, Rales or Rhonchi
Cardiac: Regular Rhythm and S1/S2
GI: Nontender and Nondistended
Musculoskeletal: No Clubbing, No Cyanosis and No Edema
Neuro: Awake, Alert and Oriented
--- NOTE | 2025-02-26 14:14 | CM ---
Patient chart reviewed
Colonoscopy today
PLAN: home, no needs anticipated
[2025-02-26 14:22] LABS: Glucose - Point of Care 71 mg/dl (70-99)
--- NOTE | 2025-02-26 14:35 | W.PN.UPDATE ---
Update Note
Progress Note Update
EGD: normal post sleeve, biopsies taken
colonoscopy: moderate hemorrhoids, likely source of prior bleeding
plan:
diet
anusol HC suppositories nightly 7-10 days
[2025-02-26 16:19] LABS: Glucose - Point of Care 145 mg/dl (70-99)
[2025-02-26 18:45] LABS: Urine Albumin Negative (Neg - Trace); Urine Bilirubin Negative (Negative); Urine Character Clear (Clear); Urine Color Yellow; Urine Glucose Negative (Negative); Urine Ketone Negative (Negative); Urine Leukocyte Negative (Negative); Urine Nitrite Negative (Negative); Urine Occult Blood Negative (Negative); Urine Specific Gravity 1.015 (<1.030); Urine Urobilinogen Negative (Neg - 1+)
[2025-02-26] MEDS: ANUSOL HC 25 MG RECTAL (21:13)
[2025-02-26 21:40] LABS: Glucose - Point of Care 128 mg/dl (70-99)
[2025-02-27 03:08] LABS: Glucose - Point of Care 104 mg/dl (70-99)
[2025-02-27 06:00] VITALS: BMI 34.6
[2025-02-27 06:29] LABS: Hematocrit 32.5 % (37.0-47.0); Hemoglobin 11.1 g/dL (12.0-16.0); Mean Corp Hgb Conc. 34.2 g/dL (33.0-37.0); Mean Corpuscular Volume 87.8 fL (81.0-99.0); Mean Platelet Volume 10.2 fL (7.4-10.4); Platelet Count 212 10^3/uL (130-400)
[2025-02-27 07:10] LABS: Glucose - Point of Care 92 mg/dl (70-99)
[2025-02-27 07:20] VITALS: BP 113/64
[2025-02-27 07:36] LABS: % Basophils 0.4 % (0-2); % Eosinophils 1.6 % (0-6); % Immature Granulocytes 0.3 % (0-0.5); % Lymphocytes 37.7 % (20.5-51.1); % Monocytes 8.5 % (1.7-9.3); % Neutrophils 51.5 % (42.2-75.2); Absolute Eosinophils 0.1 10^3/uL (0-0.7); Absolute Lymphocytes 2.6 10^3/uL (1.2-3.4); Absolute Monocytes 0.6 10^3/uL (0.1-0.6); Absolute Neutrophils 3.6 10^3/uL (1.4-6.5); Nucleated Red Blood Cells % 0 %
[2025-02-27] MEDS: CELEXA 20 MG PO (08:28)
[2025-02-27] MEDS: HIPREX 1 GRAM PO (08:28)
[2025-02-27] MEDS: LIORESAL 10 MG PO (08:29)
[2025-02-27] MEDS: PROTONIX IV 40 MG IV (08:29)
[2025-02-27] MEDS: NSS (PRESERVATIVE FREE) 10 ML IV (08:29)
[2025-02-27] MEDS: WELLBUTRIN SR (12 hour sustained release) 100 MG PO (08:29)
[2025-02-27] MEDS: NEURONTIN 100 MG PO (08:29)
--- NOTE | 2025-02-27 09:38 | W.PN.HOSP.TC ---
Today's Communication/Plan
-
dc to home
Assessment / Plan
Assessment / Plan
CT Abd/pelvis W Iv Cont
1. Mild hepatomegaly.
2. Moderate fecal material in the sigmoid colon.
3. Previous BART-BSO, appendectomy, cholecystectomy, and sleeve gastrectomy.
4. Severe discogenic degenerative disease at L2/L3
moderate to severe discogenic degenerative disease at the other lumbar levels.
Last hospitalist admission: 2018
ASSESSMENT & PLAN
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
Associates lower abdominal discomfort
POS THERESE for hemorrhoids but no stool in rectal vault, no palpable masses
Constipation with moderate fecal material in the sigmoid colon.
- blood consented
Hgb in 12/24 was 13.4, on admission was 11.5-->10.9-->11.1
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
02/26 colo: Diverticulosis in the left colon and in the right
colon.
- Non-bleeding internal hemorrhoids.
- No specimens collected.
GI rec anusol
- T & S
- IV PPI daily
- Clear diet and IVF
- Trend H & H
Pt is s/p gastric bypass,
Fe 34%/Ferritin 76.1
- GI consult for colonoscopy/EGD
Known Conditions : not active
Essential HTN in PMH: no longer on on BP Meds s/p gastric sleeve surgery and loss 82 lbs
Hypercholesterolemia on diet control
NIDDM On Mounjaro and diet control
HX frequent UTI on Hiprex
neg UA
Neuropathy HX
HX Seizures,
Asthma
Anemia
HX urinary retention
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
Pt states this increases risk of seizures following anesthesia
Cellulitis
Arthritis of the knee's
Cellulitis of the face
HX MRSA)
DVT Px: SQH
Full code
IP TLM
Anticipated Discharge: Today
Subjective/Interval History
-
Date of Service: February 27, 2025
Feels well
Objective Data
-
Labs:
Laboratory Results
02/27/25
05:52
WBC 7.0
Hgb 11.1 L
Hct 32.5 L
Plt Count 212
Vital Signs:
Vital Signs
Temp Pulse Resp BP Pulse Ox
98.1 F 69 16 113/64 96
02/27/25 07:20 02/27/25 07:20 02/27/25 07:20 02/27/25 07:20 02/27/25 07:20
I&O
02/26/25 02/27/25 02/28/25
06:59 06:59 06:59
Intake Total 2039 1320 / 1320
Balance 2039 1320 / 132
Review of Systems
-
History Source: Patient and Coordinated Provider
Constitutional: Denies Fever
EENT: Reports No Symptoms Reported
Respiratory: Reports No Symptoms; Denies Cough
Cardiac: Reports No Symptoms; Denies Chest Pain
Abdomen/GI: Reports Abdominal Pain (lower abdominal cramping essentially resolved) and Bloody Stools (prior to admission); Denies Nausea or Vomiting
Genitourinary: Reports No Symptoms
Physical Exam
-
General: Well Developed, Well Nourished and No Apparent Distress
HEENT: Normocephalic, Atraumatic and Moist Mucous Membranes
Respiratory: Clear to Auscultation; Negative Wheezes, Rales or Rhonchi
Cardiac: Regular Rhythm and S1/S2
GI: Nontender, Nondistended and Normal Bowel Sounds
Musculoskeletal: No Clubbing, No Cyanosis and No Edema
Neuro: Awake, Alert and Oriented
--- NOTE | 2025-02-27 10:51 | CM ---
Patient seen at bedside
IMM n/a
no needs
PLAN: Home, no needs
transport self
--- NOTE | 2025-02-27 11:16 | W.DS.TRANS ---
DC Summary - Registered Physical Therapist
-
Discharge Instructions:
Discharge Diagnosis/Procedures Hemorrhoidal Bleed
Diet Regular
Activity As tolerated
Additional Activity May return to work without restrictions
Driving Restrictions As prior to admission
Blood Work CBC in 1-2 weeks
Instructions:
Stand-Alone Forms:
Changes to Home Medications: Yes
Discharge Medications:
DC Medications w/original date entered in [employer]
baclofen 10 mg tablet 10 mg PO TID Muscle Spasms 01/29/11
albuterol sulfate 90 mcg/actuation aerosol inhaler 2 puff inhalation R Q4HPRN PRN SOB 06/12/15
gabapentin 100 mg capsule 100 mg PO TID Pain 11/10/16
L-Arginine 6,000 mg PO DAILY Supplement 02/24/25
bupropion HCl 100 mg tablet,12 hr sustained-release (Wellbutrin SR) 100 mg PO DAILY depression/anxiety 02/24/25
citalopram 20 mg tablet (Celexa) 20 mg PO DAILY depression/anxiety 02/24/25
coQ10 (ubiquinol) 100 mg capsule 400 mg PO BID@1200,1800 Supplement 02/24/25
coQ10 (ubiquinol) 200 mg capsule 500 mg PO DAILY Supplement 02/24/25
meloxicam 7.5 mg tablet 7.5 mg PO DAILYPRN PRN mild pain 02/24/25
methenamine hippurate 1 gram tablet 1 g PO BID Urinary Issue 02/24/25
omeprazole 20 mg tablet,delayed release 20 mg PO DAILY Gastrointestinal Issue 02/24/25
tirzepatide 7.5 mg/0.5 mL subcutaneous pen injector (Mounjaro) 7.5 mg SC SA Diabetes 02/24/25
hydrocortisone acetate 25 mg rectal suppository 25 mg IA HS #12 ea 02/27/25
Home Medication Changes
Anusol added
Pending Results: Yes
Additional Pending Results:
gastric biopsy results
[2025-02-27 11:23] VITALS: BP 118/81
== END 2025-02-27 11:30 | disposition home or self-care (01) | DRG 378 ==
LOC: 3 WEST ACU 18:48
PROVIDERS: Internal Medicine; Nurse Practitioner Adult Health; Registered Nurse; ADMITTING PHYSICIAN Internal Medicine; ATTENDING PHYSICIAN Internal Medicine; CONSULT PHYSICIAN Internal Medicine Gastroenterology; EMERGENCY PHYSICIAN Student in an Organized Health Care Education/Training Program; FAMILY PHYSICIAN Family Medicine
PROC: 0DJD8ZZ Inspection of Lower Intestinal Tract, Via Natural or Artificial Opening Endoscopic (ICD-10-PCS; 2025-02-26)
PROC: 0DB68ZX Excision of Stomach, Via Natural or Artificial Opening Endoscopic, Diagnostic (ICD-10-PCS; 2025-02-26)
DX: K92.1 Melena (principal); E88.41 MELAS syndrome; L03.211 Cellulitis of face; K64.8 Other hemorrhoids; Z87.891 Personal history of nicotine dependence; I10 Essential (primary) hypertension; E78.00 Pure hypercholesterolemia, unspecified; E11.319 Type 2 diabetes mellitus with unspecified diabetic retinopathy without macular edema; E11.622 Type 2 diabetes mellitus with other skin ulcer; Z79.84 Long term (current) use of oral hypoglycemic drugs; E66.9 Obesity, unspecified; Z98.84 Bariatric surgery status; K57.30 Diverticulosis of large intestine without perforation or abscess without bleeding; E03.9 Hypothyroidism, unspecified; E11.40 Type 2 diabetes mellitus with diabetic neuropathy, unspecified; Z68.35 Body mass index [BMI] 35.0-35.9, adult; Z86.0100 Personal history of colon polyps, unspecified; Z86.14 Personal history of Methicillin resistant Staphylococcus aureus infection; Z87.440 Personal history of urinary (tract) infections
CPT/HCPCS: 88305; 74177; 80053; 81003; 82607; 82728; 82746; 82962; 83540; 83550; 85014; 85018; 85025; 85610; 86850; 86900; 86901; 87070; 88342; 99285; Q9967

== ENCOUNTER → 2025-06-03 15:30 | Outpatient (REF) | payer MEDICARE, SELFPAY | LOC: RAD 15:30 | PROVIDERS: ATTENDING PHYSICIAN Student in an Organized Health Care Education/Training Program | DX: M79.605 Pain in left leg (principal); I83.892 Varicose veins of left lower extremity with other complications | CPT/HCPCS: 93971 ==